=== PATIENT | female | born 1985 | race Two or more races ===

== ENCOUNTER → 2023-11-14 | Outpatient (CLI) | LOC: M SOG 14:10 | PROVIDERS: ATTEND Physician Assistant | DX: M25.522 Pain in left elbow (principal); M25.562 Pain in left knee ==

== ENCOUNTER → 2023-12-26 | Outpatient (REF) | payer BC ==
[2023-12-28 12:00] LABS: HPV APTIMA Not Detected (Not Detected)
== END ==
LOC: M SFHCWAGY 13:04
PROVIDERS: ATTEND Specialist
DX: Z01.419 Encounter for gynecological examination (general) (routine) without abnormal findings (principal); R87.610 Atypical squamous cells of undetermined significance on cytologic smear of cervix (ASC-US)
CPT/HCPCS: 87624; G0123

== ENCOUNTER → 2024-01-30 | Outpatient (CLI) | payer BC | LOC: M SOG 07:52 | PROVIDERS: ATTEND Physician Assistant | DX: M54.2 Cervicalgia (principal); M25.511 Pain in right shoulder; Z53.9 Procedure and treatment not carried out, unspecified reason ==